=== PATIENT | female | born 1950 | race Caucasian/White ===

== ENCOUNTER 2018-07-22 16:12 | Emergency (ER) | payer OTHER, MEDICAID ==
[~2018-07-22] VITALS: Ht 154.9 cm; Wt 66.0 kg
[2018-07-22] MEDS ORDERED: MORPHINE SULFATE 4 MG/ML CPJ (NOT FOR IM USE) IV STA (17:23)
[2018-07-22] MEDS ORDERED: SODIUM CHLORIDE 0.9% 1,000 ML IV ONE (17:23)
[2018-07-22] MEDS ORDERED: ONDANSETRON HCL 4MG/2ML INJ IV STA (17:23)
[2018-07-22 18:17] LABS: BASOPHILS % 0.4 % (0.0-2.0); EOSINOPHILS % 0.1 % (0.0-5.0); HEMATOCRIT. 41.4 % (36.0-48.0); HEMOGLOBIN. 14.4 g/dL (12.0-16.0); LYMPHOCYTES % 14.6 % (20.0-50.0); MEAN CORPUSCULAR HEMOGLOBIN 31.8 pg (28.0-32.0); MEAN CORPUSCULAR VOLUME 91.4 fL (81.0-99.0); MEAN PLATELET VOLUME 10.6 fl (7.4-10.4); MONOCYTES % 14.8 % (2.0-8.0); NEUTROPHILS % 70.1 % (40.0-76.0); PLATELET 97 x1000/uL (130-400); RED BLOOD CELL COUNT 4.53 mill/uL (4.2-5.4); RED CELL DISTRIBUTION WIDTH 12.8 % (11.6-14.6)
[2018-07-22 18:18] LABS: CHLORIDE 99 mEq/L (98-107)
[2018-07-22 18:20] LABS: INR 1.1; PROTHROMBIN TIME 11.2 sec (9.1-11.1)
[2018-07-22 22:00] LABS: CLARITY URINE CLEAR (CLEAR); COLOR URINE YELLOW (YELLOW); KETONES URINE NEGATIVE (NEGATIVE); LEUKOCYTE ESTERASE URINE NEGATIVE (NEGATIVE); NITRITE URINE NEGATIVE (NEGATIVE); OCCULT BLOOD URINE NEGATIVE (NEGATIVE); PROTEIN URINE NEGATIVE (NEGATIVE); SPECIFIC GRAVITY URINE 1.015 (1.005-1.030); UROBILINOGEN URINE 0.2 E.U./dL (0.2-1.0)
[2018-07-22 22:51] VITALS: BP 109/61
== END 2018-07-22 23:30 | disposition home or self-care (01) ==
LOC: ER 17:53
DX: K57.90 Diverticulosis of intestine, part unspecified, without perforation or abscess without bleeding (principal); I51.7 Cardiomegaly; Z90.49 Acquired absence of other specified parts of digestive tract; Z90.710 Acquired absence of both cervix and uterus
CPT/HCPCS: 36415; 71045; 74176; 80053; 81003; 83605; 83690; 84484; 85025; 85610; 93005; 96361; 96374; 96375; 99284; J2270; J2405; J7030